=== PATIENT | male | born 1970 | race Caucasian/White ===

== ENCOUNTER 2021-01-27 18:16 | Emergency (ER) | payer OTHER ==
[2021-01-27 18:38] VITALS: BP 121/84; PULSE 90; TEMP 97.3; BMI 27.3
[2021-01-27] MEDS ORDERED: ACETAMINOPHEN 500 MG TABLET (FP) PO ONE (22:16)
[2021-01-27] MEDS ORDERED: ACETAMINOPHEN 325 MG TABLET (FP) ONE (22:32)
== END 2021-01-28 01:04 | disposition home or self-care (01) ==
LOC: JER 18:16
DX: S09.90XA Unspecified injury of head, initial encounter (principal); W10.8XXA Fall (on) (from) other stairs and steps, initial encounter; Y92.9 Unspecified place or not applicable
CPT/HCPCS: 70450-TC; 72125-TC; 99284-25